=== PATIENT | male | born 1950 | race Caucasian/White ===

== ENCOUNTER 2016-11-29 08:48 | Observation (INO) ==
[2016-11-29] MEDS ORDERED: ENOXAPARIN 100 MG/ML SYRINGE SUBCUT STA (09:14)
[2016-11-29] MEDS ORDERED: ASPIRIN 325 MG TABLET PO STA (09:14)
--- NOTE | 2016-11-29 09:17 | EKG Report ---
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
[2016-11-29] MEDS ORDERED: ASPIRIN 325 MG TABLET ONE (09:19)
[2016-11-29] MEDS ORDERED: ENOXAPARIN 100 MG/ML SYRINGE SUBCUT ONE (09:19)
--- NOTE | 2016-11-29 09:30 | XRay Report ---
2 view chest. Indication: Chest pain. The heart is normal in size. There is calcific plaque present within the aortic knob. The pulmonary vasculature is normal. There is mild scarring at the left costophrenic angle. No consolidation, pneumothorax, or pleural effusion. Degenerative changes of the spinal column and shoulders. Surgical clips in the right upper quadrant. Impression: Scarring at the left base. No acute abnormality. PROCEDURE INTERPRETED AT [facility] DEPARTMENT OF RADIOLOGY Final Report Signed by: Dr. Jennifer Terrell
[2016-11-29 10:11] LABS: Basophils % 0.6 % (0.0-0.8); Eosinophils # 0.2 10*3/uL (0.0-0.87); Eosinophils % 3.1 % (0.00-10.9); Hematocrit 44.4 VOL% (42.0-52.0); Hemoglobin 14.9 GM/DL (14.0-18.0); Immature Granulocytes % 0.4 %; Immature Granulocytes Absolute 0.02 #; Lymphocytes # 1.4 10*3/uL (1.4-4.0); Lymphocytes % 27.7 % (21.2-54.2); Mean Corpuscular HGB Conc 33.6 GM/DL (32-36); Mean Corpuscular Hemoglobin 33 PG (27-34); Mean Corpuscular Volume 98.7 FL (87-102); Mean Platelet Volume 9.8 FL (9.6-12.0); Monocytes # 0.3 10*3/uL (0.11-0.8); Neutrophils % 61.2 % (38.7-73.9); Platelet Count 171 T/CUMM (130-400); Red Cell Distribution Width 13.2 % (9.3-17.3); White Blood Count 4.9 T/CUMM (4-12)
[2016-11-29 10:30] LABS: Albumin 3.4 G/DL (3.4-5.0); Bilirubin,Total 0.5 MG/DL (0.2-1.0); Calcium 8.4 MG/DL (8.5-10.1); Magnesium 2.1 MG/DL (1.8-2.4); Potassium 3.8 MMOL/L (3.5-5.1); Total Protein 6.1 G/DL (6.4-8.3)
--- NOTE | 2016-11-29 10:50 | Emergency Department Note ---
Cat Horn Brittany, am scribing for, and in the presence of, Nathan Thomas MD 09:49. William Horn Phillip K, MD, personally performed the services described in this documentation, ascribed by Lorenza Shelton in my presence, and it is both accurate and complete . Arrival - Arrival Chief Complaint: Chest Pain Stated Complaint: chest pain ED Nursing Triage Note: Pt c/o left sided chest pain since 0500 with a HERCULES. Denies SOB. Mode of Arrival: Ambulatory - History of Present Illness HPI Narrative: This is a 66 y/o white male,who presents to the ED with c/o CP which started at 0600 this morning. He reports he was at rest when the chest pain started. He denies any radiation to the neck, jaw or arm. He denies any N?V/ or dyspnea. He states he has had similar Sx in the past. He reports a dry cough as well. His states pt experienced some dizziness and a HERCULES yesterday. He states the HERCULES is still present. PT has no other complaints/pain in the ED at this time. Pt has a PMHx of CAD and HTN. Pt has had a cardiac cath with 4 stents. Pt is a former smoker. Onset (ago): hour(s) (Started at 0600 this morning) Consistency: constant Severity: moderate, similar to previous episodes Allergies/Adverse Reactions: Allergies Allergy/AdvReac Type Severity Reaction Status Date / Time No Known Allergies Allergy Unverified 03/12/16 12:45 Home Medications: Home Medications Medication Instructions Recorded Confirmed Type Allopurinol 300 mg PO QAM 03/12/16 11/29/16 History Aspirin [Ecotrin] 81 mg PO QAM 03/12/16 11/29/16 History Losartan [Cozaar] 50 mg PO QAM 03/12/16 11/29/16 History Magnesium Oxide 400 mg PO BID 03/12/16 11/29/16 History amLODIPine [Norvasc] 5 mg PO QAM 03/12/16 11/29/16 History Hydrocodone/Acetaminophen 1 each PO Q12H PRN 11/29/16 11/29/16 History [Hydrocodon-Acetaminophn 10-325] Review of System - Review of System 12 point system: reviewed and no additional remarkable complaints except as stated - Review of System Respiratory: Present: cough (Dry cough) Cardiovascular: Present: chest pain. Absent: dyspnea on exertion Gastrointestinal: Absent: nausea, vomiting Neurological: Present: headache, vertigo (Dizziness) Medical,Surgical,& Family Hx - Medical History Cardio: History of: CAD, Hypertension, Cardiovascular Problems (stents) - Surgical History Cardiac Surgeries: Sugical HX of: Cardiac Catheterization - Social History Smoking Status: Former smoker Exam Vital Signs: Vital Signs Temperature 97.4 F L 11/29/16 09:06 Pulse Rate 102 H 11/29/16 09:06 Respiratory Rate 16 11/29/16 09:06 Blood Pressure 161/92 11/29/16 09:06 O2 Sat by Pulse Oximetry 100 11/29/16 10:01 - General General appearance: alert, in no apparent distress - Head Head exam: Present: atraumatic, normocephalic, normal inspection - Eye Eye exam: Present: normal appearance, PERRL, EOMI. Absent: nystagmus, miosis, mydriasis - ENT ENT exam: Present: normal exam, normal oropharynx, mucous membranes moist, TM's normal bilaterally, normal external ear exam - Neck Neck exam: Present: normal inspection, full ROM, trachea midline. Absent: tenderness, meningismus, lymphadenopathy, thyromegaly - Chest Chest inspection: Present: normal inspection, symmetric chest wall rise. Absent : tenderness, rash, abscess - Respiratory Respiratory exam: Present: normal lung sounds bilaterally. Absent: prolonged expiratory phase, rales, respiratory distress, rhonchi, stridor, wheezes - Cardiovascular Cardiovascular exam: Present: regular rate, normal rhythm, normal heart sounds. Absent: murmur, rubs, gallop, clicks - Abdominal Exam Abdominal exam: Present: soft, normal bowel sounds. Absent: distention, tenderness, guarding, rebound, rigidity - Rectal Exam Rectal exam: Present: deferred - Extremities Exam Extremities exam: Present: normal inspection, full ROM, normal capillary refill. Absent: tenderness, pedal edema, joint swelling, calf tenderness - Back Exam Back exam: Present: normal inspection, full ROM. Absent: tenderness, muscle spasm, rashes - Neurological Exam Neurological exam: Present: alert, oriented X3, CN II-XII intact. Absent: motor sensory deficit - Psychiatric Psychiatric exam: Present: normal affect, normal mood. Absent: depressed, agitated, anxious, flat affect, manic - Skin Skin exam: Present: warm, dry, intact, normal color. Absent: rash, cyanosis, diaphoresis, erythema, pallor, mottled Course Course Narrative: Patient discussed with Dr. Olsen. We will admit for serial enzymes and further monitoring. Results - Labs CBC & BMP: 11/29/16 09:47 11/29/16 09:47 Lab Results: I have reviewed the patients labs Labs: Laboratory Tests 11/29/16 11/29/16 11/29/16 09:47 09:47 09:47 WBC 4.9 RBC 4.50 Hgb 14.9 Hct 44.4 MCV 98.7 MCH 33 MCHC 33.6 RDW 13.2 Plt Count 171 MPV 9.8 Neut % (Auto) 61.2 Lymph % (Auto) 27.7 [place] % (Auto) 7.0 Eos % (Auto) 3.1 Baso % (Auto) 0.6 Neut # (Auto) 3.0 Lymph # (Auto) 1.4 [place] # (Auto) 0.3 Eos # (Auto) 0.2 Baso # (Auto) 0.0 Immature Gran % 0.4 Nucleated RBC % 0.0 Immature Gran # 0.02 Nucleated RBCs # 0.00 Sodium 143 Potassium 3.8 Chloride 104 Carbon Dioxide 30 Anion Gap 12.8 BUN 29 H Creatinine 1.20 GFR Calculation 77 BUN/Creatinine Ratio 24.00 H Glucose 81 Calculated Osmolality 289.0 Calcium 8.4 L Magnesium 2.1 Total Bilirubin 0.50 AST 41 H ALT 37 Alkaline Phosphatase 93 Troponin I 0.021 Total Protein 6.1 L Albumin 3.4 Globulin 2.7 Albumin/Globulin Ratio 1.2 - EKG EKG results: interpreted by ERMBree, sinus rhythm (PVCs, right bundle branch block) - Diagnostic Findings Procedure: Chest x-ray: report reviewed by me (Scarring at the left base. No acute abnormality.) Disposition Clinical Impression: Chest pain, Possible unstable angina Case discussed with: patient Disposition: Still a Patient Condition: Guarded Additional Instructions: Admit to Dr. Olsen.
[2016-11-29] MEDS ORDERED: DOCUSATE SODIUM 100 MG CAPSULE PO PRN (12:42)
[2016-11-29] MEDS ORDERED: ZALEPLON 5 MG CAPSULE PO PRN (12:42)
[2016-11-29] MEDS ORDERED: ONDANSETRON 4 MG/2 ML VIAL IV PRN (12:42)
[2016-11-29] MEDS ORDERED: MAGNESIUM SULF RIDER 2 GM in PREMIX 1 EACH IV PRN ×2 (12:43→13:46)
[2016-11-29] MEDS ORDERED: POTASSIUM CHLORIDE 20 MEQ TABLET PO PRN (12:43)
[2016-11-29] MEDS ORDERED: MAGNESIUM SULF RIDER 4 GM in PREMIX 1 EACH IV PRN (12:43)
--- NOTE | 2016-11-29 12:43 | EKG Report ---
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
[2016-11-29] MEDS ORDERED: NITROGLYCERIN SL 0.4 MG TABLET SL PRN (12:47)
[2016-11-29] MEDS ORDERED: diphenhydrAMINE CAP 25 MG CAPSULE PO ONE (12:52)
--- NOTE | 2016-11-29 12:55 | Cardiology History & Physical ---
Aris Horn April, RN, am scribing for, and in the presence of, Frandy Olsen MD 12:55. 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 Mcintosh is a 66 year old male who has seen Dr. Phoenix in the past, it does not look like he is seen him in the office recently. He had a history of CAD, hypertension, dyslipidemia, and spinal stenosis. He had heart catheterization March 29, 2009 with angioplasty and stenting of mid PDA lesion. His most recent heart cath was February 04, 2012 with stenting of proximal right coronary artery with bare-metal stent and proximal first obtuse marginal branch with drug-eluting stent. Other surgical history includes tonsillectomy, bilateral knee replacements and gastric bypass. Family history is positive for mother with heart disease and siblings with heart disease, stroke, and diabetes. He reports he no longer smokes, stating he quit about 30 years ago. Mr. Mcintosh reports he was dizzy yesterday but no other specific complaints. This morning around 6:00 he began to have chest pain. He describes as it as a dull ache to the left side of his chest that did not radiate. He reports it came on at rest and does not seem to increase with exertion. He rated it a 7-8 on a scale of 1-10 he denies any associated shortness of breath or nausea with this pain. He did continue to have dizziness today. It has been relieved with [place]. EKG showed sinus rhythm with occasional PVCs, heart rate of 82. Chest x -ray showed no acute abnormality. Troponin has been negative. His blood pressure has been elevated while he has been here, currently is 155/99. 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 He is currently pain-free. However his chest pain is reproducible with palpation. He has a remote history of multiple stents placed for multivessel coronary disease. My history is somewhat different in that he says that this is typical for his pre-stent discomfort. I am going to proceed with invasive evaluation in the morning. I reviewed with him the risks benefits and alternatives of the procedure and we will plan catheterization from the right wrist in the morning. I have discussed in detail the particulars of this case and I have examined the patient and reviewed the patient's chart both current and old. I was directly involved in the patient's evaluation and management and I completely agree with Vicky Hurst RN regarding this patient's evaluation and treatment plan. Home Medications Medication Instructions Recorded Confirmed Type Allopurinol 300 mg PO QAM 03/12/16 11/29/16 History Aspirin [Ecotrin] 81 mg PO QAM 03/12/16 11/29/16 History Losartan [Cozaar] 50 mg PO QAM 03/12/16 11/29/16 History Magnesium Oxide 400 mg PO BID 03/12/16 11/29/16 History amLODIPine [Norvasc] 5 mg PO QAM 03/12/16 11/29/16 History Hydrocodone/Acetaminophen 1 each PO Q12H PRN 11/29/16 11/29/16 History [Hydrocodon-Acetaminophn 10-325] Allergies Allergy/AdvReac Type Severity Reaction Status Date / Time No Known Allergies Allergy Unverified 03/12/16 12:45 - Constitutional Constitutional: Present: as per HPI - EENT Eyes: Present: blurry vision (Right eye), loss of vision, requires corrective lense Ears: Present: tinnitus. Absent: decreased hearing, ear pain Nose, mouth and throat: Present: headache(s), neck pain. Absent: dysphagia, epistaxis, hoarseness, sore throat - Cardiovascular Cardiovascular: Present: chest pain at rest, lightheadedness. Absent: diaphoresis, dyspnea, dyspnea on exertion, edema, radiating jaw, neck or arm pain, orthopnea, palpitations - Respiratory Respiratory: Present: cough. Absent: dyspnea, hemoptysis, dyspnea on exertion, wheezing - Gastrointestinal Gastrointestinal: Absent: abdominal pain, constipation, diarrhea, hematemesis, hematochezia, melena, nausea, vomiting - Genitourinary Genitourinary: Absent: dysuria, hematuria - Musculoskeletal Musculoskeletal: Present: back pain, limited range of motion, muscle weakness - Neurological Neurological: Present: dizziness, headache(s). Absent: abnormal speech, confusion, frequent falls, syncope - Psychiatric Psychiatric: Absent: anxiety, depression - Endocrine Endocrine: Present: fatigue - Hematologic/Lymphatic Hematologic/Lymphatic: Present: easy bruising. Absent: easy bleeding Medical,Surgical,& Family Hx - Medical History Cardio: History of: CAD, Hypertension Musculoskeletal: History of: Back/Neck Problems - Surgical History Cardiac Surgeries: Sugical HX of: Cardiac Catheterization HEENT Surgeries: Surgical HX of: Tonsilectomy & Adenoidectomy Abdominal Surgeries: Surgical HX of: Gastric Bypass Surgery Orthopedic Surgeries: Surgical HX of;: Total Knee Replacement (Bilaterally) - Family History Family History: Reports;: Family Diabetes (Sibling), Family Heart Disease ( Mother, brother), Family Stroke (Brother) - Social History Smoking Status: Former smoker (Reports he quit 30 years ago) Have you smoked in the last 12 months: No Frequency of Alcohol Use: Occasionally Type of Drug Use: None Lives With:: Alone Functional capacity: independent ambulation Cardiology Physical Exam - Constitutional Vitals: Vital Signs Temp Pulse Resp BP Pulse Ox 97.4 F L 93 H 17 145/99 96 11/29/16 09:06 11/29/16 11:24 11/29/16 11:24 11/29/16 11:24 11/29/16 11:24 Intake and Output 11/28/16 11/29/16 11/29/16 22:59 06:59 14:59 Other: Weight 217 lb Patient Weight 11/30/16 06:59 Weight 217 lb General appearance: no acute distress - Respiratory Respiratory exam: Present: clear to auscultation bilaterally, chest wall tenderness. Absent: accessory muscle use - Cardiovascular Cardiovascular exam: Present: regular rate and rhythm. Absent: rubs - GI/Abdominal GI/Abdominal exam: Present: normal bowel sounds, soft. Absent: firm, tenderness - Extremities Exam Extremities exam: Absent: edema - Neurological Exam Neurological exam: Present: alert, oriented X3 - Psychiatric Psychiatric exam: Present: normal affect, normal mood - Skin Skin exam: Present: warm, dry Result/EKG - Labs CBC & BMP: 11/29/16 09:47 11/29/16 09:47 Lab Results: I have reviewed the past 24 hour labs Labs: Laboratory Results - last 24 hr 11/29/16 11/29/16 11/29/16 09:47 09:47 09:47 WBC 4.9 RBC 4.50 Hgb 14.9 Hct 44.4 MCV 98.7 MCH 33 MCHC 33.6 RDW 13.2 Plt Count 171 MPV 9.8 Neut % (Auto) 61.2 Lymph % (Auto) 27.7 [place] % (Auto) 7.0 Eos % (Auto) 3.1 Baso % (Auto) 0.6 Neut # (Auto) 3.0 Lymph # (Auto) 1.4 [place] # (Auto) 0.3 Eos # (Auto) 0.2 Baso # (Auto) 0.0 Immature Gran % 0.4 Nucleated RBC % 0.0 Immature Gran # 0.02 Nucleated RBCs # 0.00 Sodium 143 Potassium 3.8 Chloride 104 Carbon Dioxide 30 Anion Gap 12.8 BUN 29 H Creatinine 1.20 GFR Calculation 77 BUN/Creatinine Ratio 24.00 H Glucose 81 Calculated Osmolality 289.0 Calcium 8.4 L Magnesium 2.1 Total Bilirubin 0.50 AST 41 H ALT 37 Alkaline Phosphatase 93 Troponin I 0.021 Total Protein 6.1 L Albumin 3.4 Globulin 2.7 Albumin/Globulin Ratio 1.2 - Diagnostic Findings Procedure: Chest x-ray: report reviewed by me - EKG EKG results: interpreted by me EKG shows: sinus rhythm IRaúl Wesley, MD, personally performed the services described in this documentation, ascribed by Vicky Hurst RN in my presence, and it is both accurate and complete .
[2016-11-29] MEDS ORDERED: DIAZEPAM 5 MG TABLET PO ONE (13:00)
[2016-11-29] MEDS ORDERED: POTASSIUM CHLORIDE RIDER 10 MEQ in PREMIX 1 EACH IV PRN (13:46)
--- NOTE | 2016-11-29 13:52 | Event Note ---
66-year-old man with known coronary disease having prior percutaneous coronary intervention. Based on information the patient had heart catheterization March 2009 with stenting of the mid PDA followed by catheterization January 2012 stenting of the proximal RCA and proximal first obtuse marginal branch. The patient has not been compliant with follow-up with Dr. Phoenix who originally saw the patient then. Patient presented with chest pain of anginal quality was evaluated in the emergency room. Dr. Olsen saw the patient and felt the patient was having anginal and with his coronary disease history should have a cardiac catheterization. We will proceed with catheterization today. I discussed cardiac catheterization with the patient reviewing medications as well as how the procedure be carried out the risk. I discussed cardiac catheterization and percutaneous coronary intervention with the patient. I reviewed with him the indications for the procedure and the basis of how the procedure would be carried out. I also reviewed with him the risk of the procedure which include but not necessarily limited to access site bleeding, bruising, pain, swelling or vascular injury that may require emergency vascular surgery, blood transfusion, or thrombin injection. Also discussed the possibility of stroke, myocardial infarction, arrhythmia which may require electrocardioversion, and the possibility of dye reaction that would require medical therapy. Also discussed the possibility of coronary artery injury, ruptured, closure or perforation that may require emergency bypass surgery. We also discussed the possibility of from a major complication. He voices understanding and agrees to proceed.
[2016-11-29] MEDS ORDERED: SODIUM CHLORIDE 0.45% 1,000 ML IV SCH (13:55)
[2016-11-29] MEDS ORDERED: fentaNYL 100 MCG/2 ML VIAL ONE (14:18)
[2016-11-29] MEDS ORDERED: MIDAZOLAM 2 MG/2 ML VIAL ONE (14:18)
[2016-11-29] MEDS ORDERED: LIDOCAINE 1% 20 ML VIAL ONE (14:18)
[2016-11-29 14:24] LABS: Troponin I Only < 0.015 NG/ML (0.00-0.045)
--- NOTE | 2016-11-29 14:47 | History and Physical Update ---
Sedation H&P Update - History and Physical H&P was reviewed, the patient examined and there: are no changes in the patients condition since last H&P was completed. - Dictation Physical: refer to H&P completed by admitting physician - Physical Exam Mental Status: alert and oriented Heart: regular rate and rhythm Lung: clear to auscultation Abdomen: within normal limits Vitals: within normal limits History and Physical Changes: NONE - Sedation Plan for Sedation: moderate Patient Consent: Procedure disscussed with patient and patinet has consented., Risks and benefits were discussed with patient,including infection,, bleeding, injury to surrounding structures, seizure, temporary nerve, Patient understands and accepts potential risks/benefits and agrees to, proceed. ASA Class: III Airway Assessment: Class IV: Only hard palate visible
--- NOTE | 2016-11-29 15:15 | Operative Note ---
Date of procedure: 11/29/16 Procedure Preformed: Left heart catheterization with LV gram and coronary artery angiography. Surgeon / Physician: Eduar Weston Chip Crusher Operator: Susanne Vincent Post-op diagnosis: other (Patent coronary arteries) Findings: Coronary stents are patent and coronary arteries are patent. Specimens: none sent Estimated blood loss: minimal Condition: stable Anesthesia: local, conscious sedation Disposition: floor
--- NOTE | 2016-11-29 15:22 | Cardiac Catheterization ---
Date of Procedure:: 11/29/16 Pre-op Diagnosis: Patient known coronary disease having chest pain of anginal quality. Post-op diagnosis: other (Patent coronary arteries) Procedure: LEFT HEART CATHERIZATION History: 66-year-old male with chest pain of anginal quality with known coronary disease and stents placed previously. Pre-Op diagnosis: Known coronary disease with anginal chest pain. Postoperative diagnosis: Coronary is patent without obstructive stenosis. Procedures: 1. Left heart catheterization. 2. Left ventricular angiogram. 3. Selective left and right coronary angiograms. 4. Right common femoral artery angiogram with Angio-Seal hemostasis. Equipment: 6 Malian arterial sheath, 6 Malian diagnostic pigtail catheter, JL4 and JR4 diagnostic catheters. A 6 [place]ian Angio-Seal hemostatic device. Medications: Preoperative Benadryl and Valium given by mouth. Lidocaine 1% local anesthesia 10 mls administered by myself. Intraprocedure patient received Versed 2 mgs IVP, fentanyl 100 mcg IVP. Complications: None immediate. Contrast: Omnipaque 82milliliters. Description of procedure: After informed consent the patient was given preoperative medications and brought to the catheterization laboratory where their right groin was prepped and draped in usual fashion. IV sedation was then obtained after which local anesthesia was administered at the right groin over the right common femoral artery. Using modified Seldinger technique the right common femoral artery was cannulated with 6 Malian arterial sheath placed. The pigtail catheter was then advanced through the sheath in a retrograde approach through the aorta to the aortic valve. The catheter was advanced through the aortic valve where left ventricular pressures were measured. The catheter was then pulled back into the aortic root and pressures measured. The catheter was then advanced across the aortic valve into the left ventricle where left ventricular angiogram was obtained in the right anterior oblique view. The pigtail catheter was then removed. The JL4 diagnostic coronary catheter was then advanced through the sheath in a retrograde approach and used to cannulate the left coronary artery of which angiograms were obtained in multiple projections. This catheter was then removed. The JR 4 diagnostic coronary catheter was then advanced retrograde through the aorta and used to cannulate the right coronary artery of which angiograms were obtained in multiple projections. Angiograms were then reviewed. The right coronary catheter was pulled back into the sheath where a right common femoral artery angiogram was obtained with Angio-Seal hemostasis then obtained of this vessel. There were no immediate complications. Hemodynamic data: LV 112/4 , EDP 7 ; AO root 120/83 , mean 100 . Left ventricular angiogram: Left ventricle is normal size with systolic ejection fraction of 50-55%. There is no significant mitral valve regurgitation demonstrated. There are valve. Tricuspid structure. The thoracic aorta from the right oblique view appears to be unremarkable other than aortic calcifications. There is calcification noted the coronary arteries. Left main coronary artery angiogram: Left main coronary with calcification. Medium sized vessel that bifurcates into the LAD and circumflex arteries. Left anterior descending artery angiogram: The LAD is a medium to large caliber vessel proximally with some calcification. The LAD extends to the anterior apex. The first diagonal branch is small caliber. The second diagonal branches 5 medium caliber. Circumflex artery angiogram: Circumflex artery is a medium to large caliber vessel calcification. First obtuse marginal branch is a medium caliber long vessel, larger myocardium. He has a proximal stent is widely patent. The second obtuse marginal branch is a medium caliber vessel long and tortuous. It is widely patent. The distal cervix artery terminates in the form of a third obtuse marginal branch/posterior ventricular branch. The circumflex artery proper has some calcification but is widely patent. Right coronary artery angiogram: RCA is a large caliber vessel giving rise to medium caliber long PDA extending to the posterior apex. Posterior branches are small-caliber vessels with small AV node artery distally. The proximal RCA stent is widely patent. The PDA stent is widely patent. There is luminal irregularities and some calcification present with RCA is with JOVON-3 flow. Right common femoral artery angiogram: Right common femoral artery is widely patent with the sheath inserted right at the bifurcation possibly some degree and a large profundus. Assessment and hemostasis. Impression: 1. Left ventricle is normal size with ejection fraction 50-55%. No segmental wall motion normality is noted. 2. LVEDP is normal at 7 mmHg. 3. There is no significant mitral valve regurgitation. 4. Aortic valve the tricuspid structure without gradient. 5. RCA is widely patent with patent proximal stent. PDA stent is widely patent. There is no stenotic or occlusive disease present. There is some calcification present. 6. Left main coronary with calcification but widely patent. 7. Circumflex artery system is some calcification but widely patent. First obtuse marginal stent is widely patent. 8. LAD with some calcification but without stenosis. 9. Right common femoral artery is patent successfully initial hemostasis. Discussion: We will monitor the patient post catheterization. He needs aggressive risk factor modification. He has some lifestyle changes that need to take place. This will be discussed the patient cardiac rehab is been consulted. Implants: None Anesthesia: local, moderate conscious sedation Surgeon / Physician: Eduar Weston Epidemiology Intern: other (Lanie Vincent RN) Estimated blood loss: minimal Specimens: none sent Condition: stable Disposition: floor - Medications / Follow-up
--- NOTE | 2016-11-29 16:05 | Event Note ---
Patient and family complained that he has been having headaches as well as some dizziness and near syncopal episodes. He had a short nonsustained run of SVT post catheterization today. He did not complain of anything though at that time. We will watch him overnight on the monitor spaces he said he has been having spells pretty frequent for the last 48 hours. Hopefully will catch a spell. We will go ahead and order carotid Dopplers and probably a CT of the head for in the morning. He may need outpatient evaluation with neurologic evaluation is well as event monitoring. In regard to his catheterization is doing well. Discussed findings catheterization that his arteries are patent. I do not think his pain is cardiac. His groin is stable.
[2016-11-29] MEDS: LORazepam 0.5 MG TABLET PO SCH ×2 (16:07→21:13)
[2016-11-29] MEDS: PANTOPRAZOLE 40 MG TABLET PO SCH (16:07)
[2016-11-29] MEDS: FOLIC ACID 1 MG TABLET PO SCH (16:07)
--- NOTE | 2016-11-29 18:46 | Ultrasound Report ---
Carotid artery ultrasound Indication: Vertigo, syncope Comparison: None available Color Doppler flow and spectral analysis was performed. Findings: Mild to moderate amount of atherosclerotic plaque is present in both proximal internal carotid arteries. The peak systolic velocity in the right is 47 cm/s . Ratio of flow is 1.5. The peak systolic velocity in the left is 52 cm/s . Ratio of flow is 1.1 Bilateral antegrade vertebral flow is seen. Impression: No evidence of hemodynamically significant stenosis is seen, 0-49% estimated stenosis. Consensus conference on the carotid ultrasound criteria used. Ultrasound images were captured and stored. PROCEDURE INTERPRETED AT [facility] [place] DEPARTMENT OF RADIOLOGY Final Report Signed by: Dr. Miller Iglesias
[2016-11-29] MEDS: ACETAMINOPHEN 325 MG TABLET PO PRN (21:12)
[2016-11-29] MEDS: MAGNESIUM OXIDE 400 MG TABLET PO SCH (21:13)
[2016-11-30 02:45] LABS: Basophils % 0.5 % (0.0-0.8); Eosinophils # 0.2 10*3/uL (0.0-0.87); Eosinophils % 5.3 % (0.00-10.9); Hematocrit 42.6 VOL% (42.0-52.0); Hemoglobin 14.1 GM/DL (14.0-18.0); Immature Granulocytes % 0.7 %; Immature Granulocytes Absolute 0.03 #; Lymphocytes # 1.5 10*3/uL (1.4-4.0); Lymphocytes % 34.5 % (21.2-54.2); Mean Corpuscular HGB Conc 33.1 GM/DL (32-36); Mean Corpuscular Hemoglobin 33 PG (27-34); Mean Corpuscular Volume 99.1 FL (87-102); Mean Platelet Volume 10.3 FL (9.6-12.0); Monocytes # 0.3 10*3/uL (0.11-0.8); Monocytes % 6.4 % (1.7-12.7); Neutrophils # 2.3 10*3/uL (1.4-7.4); Neutrophils % 52.6 % (38.7-73.9); Platelet Count 157 T/CUMM (130-400); Red Cell Distribution Width 12.9 % (9.3-17.3); White Blood Count 4.4 T/CUMM (4-12)
[2016-11-30 03:13] LABS: Troponin I Only 0.016 NG/ML (0.00-0.045)
[2016-11-30 03:24] LABS: Calcium 7.9 MG/DL (8.5-10.1); Free T4 (Free Thyroxine) 1.05 NG/DL (0.76-1.46); Magnesium 1.9 MG/DL (1.8-2.4); Osmolality,Calculated 284.1 MOS/KG (273-304); Potassium 3.6 MMOL/L (3.5-5.1); Risk Ratio 1.98; Thyroid Stimulating Hormone 0.69 uIU/ml (0.358-3.74); VLDL CHOLESTEROL 19.2 MG/DL
[2016-11-30 04:04] LABS: Eosinophils 2 % (0-10); Lymphocytes 38 % (20-55); Segmented Neutrophils 58 % (50-85); Total Cells Counted 100
[2016-11-30 04:05] LABS: Anisocytosis Slight; Macrocytosis Slight; Platelet Estimate Normal
[2016-11-30 04:06] LABS: Atypical Lymphocytes Few
[2016-11-30] MEDS ORDERED: SODIUM CHLORIDE 0.45% 1,000 ML IV SCH (06:00)
[2016-11-30] MEDS: ACETAMINOPHEN 325 MG TABLET PO PRN (06:01)
[2016-11-30 08:12] LABS: Apearance,Urine CLEAR (Clear); Bilirubin,Urine Negative (Negative); Blood, Urine Moderate mg/dL (Negative); Glucose,Urine (UA) Negative (Negative); Ketones,Urine Negative (Negative); Nitrite,Urine Negative (Negative); Protein,Urine 30 MG/DL; RBC,Urine 2 /HPF (0-4); Urine Color Yellow (Yellow); Urine Specific Gravity 1.032 (1.001-1.035); Urine Urobilinogen < 2.0 EU/DL (0.2-1.0); WBC,Urine <1 /HPF (0-6)
--- NOTE | 2016-11-30 08:42 | CT Report ---
CT head/brain wo/w con Indication: Headaches. Dizziness and syncope. CT BRAIN WITH AND WITHOUT CONTRAST DLP: 1996 mGy*cm. One or more of the following dose reduction techniques was used: Automated exposure control, adjustment of the mA and/or kV according the patient size, or use of iterative reconstruction techniques. Comparison: None. Date of admission: 11/29/2016. Technique: Axial CT images of the brain were obtained before and after the IV administration of Omnipaque 350, 80 cc. Findings: No acute hemorrhage, mass or mass effect. Generalized atrophy and patchy periventricular white matter hypodensity is present throughout both convexities. Cortical andres-white junction and structures of the basal ganglia are well-defined. No enhancing lesions seen. No bone lesions are shown. Internal auditory canals are symmetric. Nodular mucosal thickening of the ethmoid, sphenoid and maxillary sinus is noted. There is opacification of the right frontal sinus. Mastoid air cells are clear. Impression: No acute intracranial pathology. Generalized atrophy and changes consistent with microvascular disease. Pansinusitis. PROCEDURE INTERPRETED AT [facility] DEPARTMENT OF RADIOLOGY Final Report Signed by: Eduar Sandy M.D.
[2016-11-30] MEDS: PANTOPRAZOLE 40 MG TABLET PO SCH (08:46)
[2016-11-30] MEDS: MAGNESIUM OXIDE 400 MG TABLET PO SCH (08:46)
[2016-11-30] MEDS: LORazepam 0.5 MG TABLET PO SCH (08:46)
[2016-11-30] MEDS: FOLIC ACID 1 MG TABLET PO SCH (08:46)
[2016-11-30] MEDS ORDERED: amLODIPine 5 MG TABLET PO SCH (09:00)
[2016-11-30] MEDS ORDERED: LOSARTAN 50 MG TABLET PO SCH (09:00)
[2016-11-30] MEDS ORDERED: ASPIRIN EC 81 MG TABLET PO SCH (09:00)
[2016-11-30] MEDS ORDERED: ALLOPURINOL 300 MG TABLET PO SCH (09:00)
--- NOTE | 2016-11-30 11:44 | Discharge Summary ---
Hospital Course - Hospital Course Hospital Course: Patient is admitted from and through the emergency room because of chest pain. He had a prior history coronary disease having stents placed previously. He has been noncompliant follow-up with Dr. 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 The patient underwent heart catheterization finding that his coronaries were patent as were his stents. He had no obstructive or occlusive disease to cause symptomatology. His cardiac enzymes are unremarkable he had no acute changes on his ECG. Patient's lipids are stable. The patient was noted to have some PVCs and SVT. That is nonsustained. He also complains of dizziness that sounds more like vertigo or positional. He states she has been having dizziness when he would get up or lay down or turning quickly. He has had no dizziness that we can correlate with his SVT. He will certainly need follow-up for this. His carotid Dopplers were unremarkable without any occlusive carotid disease. His CT of the head did not reveal any specific pathology based on report from the radiologist. At the time of discharge he is stable. Results of his cardiac catheterization Impression: 1. Left ventricle is normal size with ejection fraction 50-55%. No segmental wall motion normality is noted. 2. LVEDP is normal at 7 mmHg. 3. There is no significant mitral valve regurgitation. 4. Aortic valve the tricuspid structure without gradient. 5. RCA is widely patent with patent proximal stent. PDA stent is widely patent. There is no stenotic or occlusive disease present. There is some calcification present. 6. Left main coronary with calcification but widely patent. 7. Circumflex artery system is some calcification but widely patent. First obtuse marginal stent is widely patent. 8. LAD with some calcification but without stenosis. 9. Right common femoral artery is patent successfully initial hemostasis. Diagnosis - Discharge Diagnosis (1) Dizziness Status: Chronic (2) SVT (supraventricular tachycardia) Status: Acute (3) PVCs (premature ventricular contractions) Status: Acute (4) Chest pain Status: Resolved (5) CAD (coronary artery disease) Status: Chronic (6) Hypertension Status: Chronic Discharge Plan - Discharge Data Disposition: Disch To Home/Self Care Condition at Discharge: Stable Discharge Diet: heart healthy Activity: other (Low-level activity for the next week to allow his groin to his is stable and then return to routine activity.) Hygiene: no restrictions Weight Bearing at Discharge: full weight bearing Driving: not for (Another 24 hours and then progress if his right groin stable.) Contact your physician if you experience:: Redness or swelling, Shortness of breath, Bleeding, pain uncontrolled by pain medications - Discharge Medications New Metoprolol Succinate Xl [Toprol Xl] 50 mg PO DAILY #30 tablet Meclizine [Antivert] 12.5 mg PO TID #30 tablet Continue amLODIPine [Norvasc] 5 mg PO QAM Magnesium Oxide 400 mg PO BID Losartan [Cozaar] 50 mg PO QAM Allopurinol 300 mg PO QAM Aspirin [Ecotrin] 81 mg PO QAM Hydrocodone/Acetaminophen [Hydrocodon-Acetaminophn 10-325] 1 each PO Q12H PRN PRN Reason: Pain - Follow Up or Referral Follow Up: Dev Phoenix MD [Physician] - 2 Weeks (Follow-up in 2 weeks post cardiac catheterization in SVT on new medication) Vy Lara MD [Physician] - 1 Week (Follow-up in 1 week for his dizziness and start of Antivert.) - Forms/Instructions Exam - Constitutional Vitals: Period Temp Pulse Resp BP Sys/Olmedo Pulse Ox Last 24 Hr 96.8 F-98.2 F 69-109 16-18 107-155/75-106 93-97 Exam: General appearance: Obese, no acute distress HEENT exam: normal inspection, atraumatic Neck exam: normal inspection no JVD. No carotid bruit. Trachea is in midline Respiratory/lungs exam: clear to auscultation bilaterally good air movement. Cardiovascular exam: regular rate and rhythm, no murmur or gallop or rub. No precordial lift. Chest wall exam: nontender GI/Abdominal exam: normal bowel sounds, soft, nontender, no abdominal bruits or pulsatile masses. Extremeties/musculoskeletal: normal inspection without edema or cyanosis. Patient's right groin catheterization site is stable. Neurological exam: alert, oriented X3, no focal deficits Psychiatric exam: normal affect, normal mood. Cognitive function is grossly normal. Skin exam: normal color, warm Discharge Results Procedures and tests throughout hospitalization: Pending Orders 11/29/16 14:16 CL heart Routine 12/01/16 04:00 Basic Metabolic Panel IN AM Comp Blood Count Auto Diff IN AM Magnesium IN AM 12/02/16 04:00 Basic Metabolic Panel IN AM Comp Blood Count Auto Diff IN AM Magnesium IN AM Labs on day of discharge: Labs from last 24 hours 11/30/16 11/30/16 11/30/16 06:45 01:19 01:19 WBC 4.4 RBC 4.30 Hgb 14.1 Hct 42.6 MCV 99.1 MCH 33 MCHC 33.1 RDW 12.9 Plt Count 157 MPV 10.3 Neut % (Auto) 52.6 Lymph % (Auto) 34.5 [place] % (Auto) 6.4 Eos % (Auto) 5.3 Baso % (Auto) 0.5 Neut # (Auto) 2.3 Lymph # (Auto) 1.5 [place] # (Auto) 0.3 Eos # (Auto) 0.2 Baso # (Auto) 0.0 Total Counted 100 Immature Gran % 0.7 Nucleated RBC % 0.0 Immature Gran # 0.03 Segmented Neutrophils 58 Lymphocytes 38 Monocytes 1 L Eosinophils 2 Basophils 1.0 H Nucleated RBCs # 0.00 Atypical Lymphocytes Few Platelet Estimate Normal Anisocytosis Slight Macrocytosis Slight Sodium 142 Potassium 3.6 Chloride 104 Carbon Dioxide 29 Anion Gap 12.6 BUN 21 H Creatinine 0.90 GFR Calculation 110 BUN/Creatinine Ratio 23.00 H Glucose 76 Calculated Osmolality 284.1 Calcium 7.9 L Magnesium 1.9 Total Creatine Kinase CK-MB (CK-2) Troponin I Triglycerides 96 Cholesterol 158 LDL Cholesterol 55.0 VLDL Cholesterol 19.2 HDL Cholesterol 80 H Heart Disease Risk Ratio 1.98 Free T4 1.05 TSH 3rd Generation 0.690 Urine Color Yellow Urine Appearance Clear Urine pH 6.0 Ur Specific [place] 1.032 Urine Protein 30 Urine Glucose (UA) Negative Urine Ketones Negative Urine Blood Moderate Urine Nitrate Negative Urine Bilirubin Negative Urine Urobilinogen < 2.0 H Urine Leukocytes Negative Urine RBC 2 Urine WBC <1 Ur Culture Indicated? Not indicated 11/30/16 11/29/16 11/29/16 01:19 19:20 12:52 WBC RBC Hgb Hct MCV MCH MCHC RDW Plt Count MPV Neut % (Auto) Lymph % (Auto) [place] % (Auto) Eos % (Auto) Baso % (Auto) Neut # (Auto) Lymph # (Auto) [place] # (Auto) Eos # (Auto) Baso # (Auto) Total Counted Immature Gran % Nucleated RBC % Immature Gran # Segmented Neutrophils Lymphocytes Monocytes Eosinophils Basophils Nucleated RBCs # Atypical Lymphocytes Platelet Estimate Anisocytosis Macrocytosis Sodium Potassium Chloride Carbon Dioxide Anion Gap BUN Creatinine GFR Calculation BUN/Creatinine Ratio Glucose Calculated Osmolality Calcium Magnesium Total Creatine Kinase 62 76 79 CK-MB (CK-2) 1.1 1.2 1.3 Troponin I 0.016 0.020 < 0.015 Triglycerides Cholesterol LDL Cholesterol VLDL Cholesterol HDL Cholesterol Heart Disease Risk Ratio Free T4 TSH 3rd Generation Urine Color Urine Appearance Urine pH Ur Specific [place] Urine Protein Urine Glucose (UA) Urine Ketones Urine Blood Urine Nitrate Urine Bilirubin Urine Urobilinogen Urine Leukocytes Urine RBC Urine WBC Ur Culture Indicated? - Impressions Cardiac catheterization without obstructive coronary disease. Please see full report for details. Patient CT of the head without acute pathology to account for his dizziness. Carotid Dopplers patent. DS: Provider Date of admission: 11/29/16 10:53 Primary care physician: . No PCP Attending physician on admission: Frandy Olsen MD Consults: 11/29/16 15:17 Consult to Cardiac Rehabilitation [CONS] Routine Reason for Cardiac Rehabilitation: Risk Factor Modification Discharging clinician: Se Schulte Expected date of discharge: 11/30/16
[2016-11-30 11:48] VITALS: BP 146/103
[2016-11-30] MEDS ORDERED: METOPROLOL SUCCINATE XL 50 MG TABLET PO SCH (12:00)
[2016-11-30] MEDS ORDERED: MECLIZINE 12.5 MG TABLET PO SCH (15:00)
== END 2016-11-30 13:05 | disposition home or self-care (01) ==
LOC: N.EDINP 08:48 → N.ED 08:48 → N.TELEN 11:42
PROVIDERS: ADMIT Internal Medicine Interventional Cardiology; ATTEND Internal Medicine Interventional Cardiology
PROC: CLCCHCL (ICD-10-PCS; 2016-11-29 15:15)

== ENCOUNTER 2019-12-21 10:58 | Observation (INO) ==
[2019-12-21] MEDS ORDERED: SODIUM CHLORIDE 0.9% 1,000 ML IV STA ×2 (11:25→13:28)
[2019-12-21 12:02] LABS: Basophils # 0.1 10*3/uL (0.0-0.2); Basophils % 1.1 % (0.0-0.8); Eosinophils # 0.3 10*3/uL (0.0-0.87); Eosinophils % 4.5 % (0.00-10.9); Hematocrit 29.9 VOL% (42.0-52.0); Hemoglobin 9.2 GM/DL (14.0-18.0); Immature Granulocytes % 0.5 %; Immature Granulocytes Absolute 0.03 #; Lymphocytes # 1.1 10*3/uL (1.4-4.0); Lymphocytes % 17.2 % (21.2-54.2); Mean Corpuscular HGB Conc 30.8 GM/DL (32-36); Mean Corpuscular Volume 100.7 FL (87-102); Mean Platelet Volume 11.9 FL (9.6-12.0); Monocytes % 6.3 % (1.7-12.7); Neutrophils % 70.4 % (38.7-73.9); Platelet Count 247 T/CUMM (130-400); Red Blood Count 2.97 MC/CUMM (3.8-5.5); Red Cell Distribution Width 16.9 % (9.3-17.3); White Blood Count 6.2 T/CUMM (4-12)
[2019-12-21 12:12] LABS: PT Patient Result 10.8 SECS (9.8-11.9)
[2019-12-21 12:51] LABS: Bilirubin,Total 0.4 MG/DL (0.2-1.0); Calcium 8.2 MG/DL (8.5-10.1); Osmolality,Calculated 289.5 MOS/KG (273-304); Total Protein 5.9 G/DL (6.4-8.3)
[2019-12-21 13:43] LABS: % Iron Saturation 32.9 % (18-50)
[2019-12-21] MEDS ORDERED: PROMETHAZINE 25 MG TABLET PO PRN (13:59)
[2019-12-21] MEDS ORDERED: ZALEPLON 5 MG CAPSULE PO PRN (13:59)
[2019-12-21] MEDS ORDERED: ONDANSETRON 4 MG/2 ML VIAL IV PRN (13:59)
[2019-12-21] MEDS ORDERED: GLUCAGON 1 MG VIAL IM PRN (13:59)
[2019-12-21] MEDS ORDERED: ACETAMINOPHEN 325 MG TABLET PO PRN (13:59)
[2019-12-21] MEDS ORDERED: DEXTROSE 50% 25 GM/50 ML VIAL IV PRN (13:59)
[2019-12-21] MEDS ORDERED: BISACODYL 5 MG TABLET PO PRN (13:59)
[2019-12-21] MEDS: DEXTROSE 5% NACL 0.45% 1,000 ML IV SCH (15:50)
[2019-12-21 16:21] LABS: Barbiturates Screen,Urine Negative (Negative); Benzodiazepines Screen,Urine Negative (Negative); Cannabinoid Screen,Urine Negative (Negative); Opiate Screen,Urine Negative (Negative); Phencyclidine Screen,Urine Negative (Negative)
[2019-12-21 16:22] LABS: Apearance,Urine CLEAR (Clear); Bilirubin,Urine Negative (Negative); Blood, Urine Negative (Negative); Glucose,Urine (UA) Negative (Negative); Hyaline Casts,Urine 1 /LPF (0-3); Ketones,Urine Negative (Negative); Mucus,Urine Occasional /LPF (Occasional); Nitrite,Urine Negative (Negative); Protein,Urine Negative; RBC,Urine 1 /HPF (0-4); Urine Color Yellow (Yellow); Urine Specific Gravity 1.006 (1.001-1.035); Urine Urobilinogen < 2.0 EU/DL (0.2-1.0); WBC,Urine 1 /HPF (0-6)
[2019-12-21 16:27] LABS: Hematocrit 30.7 VOL% (42.0-52.0); Hemoglobin 9.6 GM/DL (14.0-18.0)
[2019-12-21 16:57] LABS: Calcium 8.2 MG/DL (8.5-10.1); Osmolality,Calculated 293.3 MOS/KG (273-304)
[2019-12-21 18:48] LABS: Folate 20.1 NG/ML (5.4-24.0)
[2019-12-21] MEDS: ENOXAPARIN 40 MG/0.4 ML SYRINGE SUBCUT SCH (20:20)
[2019-12-22] MEDS: DEXTROSE 5% NACL 0.45% 1,000 ML IV SCH (01:30)
[2019-12-22 04:03] LABS: Basophils % 0.9 % (0.0-0.8); Eosinophils # 0.3 10*3/uL (0.0-0.87); Eosinophils % 7.3 % (0.00-10.9); Hematocrit 29.8 VOL% (42.0-52.0); Hemoglobin 9.4 GM/DL (14.0-18.0); Immature Granulocytes % 0.4 %; Immature Granulocytes Absolute 0.02 #; Lymphocytes # 1.3 10*3/uL (1.4-4.0); Lymphocytes % 28.3 % (21.2-54.2); Mean Corpuscular HGB Conc 31.5 GM/DL (32-36); Mean Corpuscular Volume 98.7 FL (87-102); Mean Platelet Volume 11.7 FL (9.6-12.0); Monocytes % 7.7 % (1.7-12.7); Neutrophils % 55.4 % (38.7-73.9); Platelet Count 238 T/CUMM (130-400); Red Blood Count 3.02 MC/CUMM (3.8-5.5); White Blood Count 4.5 T/CUMM (4-12)
[2019-12-22 04:37] LABS: Calcium 8.2 MG/DL (8.5-10.1); Osmolality,Calculated 294.1 MOS/KG (273-304); Risk Ratio 4.89; Thyroid Stimulating Hormone 0.825 uIU/ml (0.358-3.74); VLDL CHOLESTEROL 22.6 MG/DL
[2019-12-22] MEDS: PANTOPRAZOLE 40 MG TABLET PO SCH (09:03)
[2019-12-22] MEDS: ENOXAPARIN 40 MG/0.4 ML SYRINGE SUBCUT SCH (20:06)
[2019-12-23] MEDS: PANTOPRAZOLE 40 MG TABLET PO SCH (09:25)
[2019-12-23 10:42] LABS: Calcium 8.6 MG/DL (8.5-10.1); Osmolality,Calculated 291.8 MOS/KG (273-304)
[2019-12-23] MEDS ORDERED: POTASSIUM CHLORIDE 20 MEQ TABLET PO ONE (11:24)
[2019-12-23 11:57] VITALS: BP 134/85
== END 2019-12-23 14:15 | disposition home health service (06) ==
LOC: N.EDINP 10:58 → N.ED 10:58 → N.EDINP 16:24 → N.TELES 17:10
PROVIDERS: ADMIT Internal Medicine; ATTEND Internal Medicine

== ENCOUNTER 2020-03-07 05:35 | Inpatient (IN) ==
[2020-03-01 12:15] LABS: Bilirubin,Urine Negative (Negative); Blood, Urine Moderate mg/dL (Negative); Glucose,Urine (UA) Negative (Negative); Ketones,Urine Negative (Negative); Nitrite,Urine Negative (Negative); Protein,Urine 100 MG/DL; RBC,Urine 1 /HPF (0-4); Urine Appearance CLEAR (Clear); Urine Color Straw (Yellow); Urine Specific Gravity 1.006 (1.001-1.035); Urine Urobilinogen < 2.0 EU/DL (0.2-1.0); WBC,Urine <1 /HPF (0-6)
[2020-03-01 12:19] LABS: Basophils % 0.3 % (0.0-0.8); Eosinophils # 0.1 10*3/uL (0.0-0.87); Hemoglobin 12.3 GM/DL (14.0-18.0); Immature Granulocytes % 0.3 %; Immature Granulocytes Absolute 0.02 #; Lymphocytes # 2.1 10*3/uL (1.4-4.0); Lymphocytes % 31.9 % (21.2-54.2); Mean Corpuscular HGB Conc 32.4 GM/DL (32-36); Mean Corpuscular Volume 94.3 FL (87-102); Mean Platelet Volume 10.4 FL (9.6-12.0); Monocytes % 6.3 % (1.7-12.7); Neutrophils % 60.2 % (38.7-73.9); Platelet Count 239 T/CUMM (130-400); Red Blood Count 4.03 MC/CUMM (3.8-5.5); White Blood Count 6.7 T/CUMM (4-12)
[2020-03-01 12:30] LABS: PT Patient Result 10.3 SECS (9.8-11.9); Partial Thromboplastin Time 30.2 SECS (23.9-33.8)
[2020-03-01 12:36] LABS: Albumin 3.9 G/DL (3.4-5.0); Bilirubin,Total 0.5 MG/DL (0.2-1.0); Calcium 9.4 MG/DL (8.5-10.1); Osmolality,Calculated 271.1 MOS/KG (273-304); Total Protein 7.4 G/DL (6.4-8.3)
[2020-03-07] MEDS ORDERED: ceFAZolin 1,000 MG VIAL ONE (05:53)
[2020-03-07] MEDS ORDERED: LACTATED RINGERS 1,000 ML IV SCH (06:00)
[2020-03-07] MEDS ORDERED: VANCOMYCIN INJ 1,000 MG in SODIUM CHLORIDE 0.9% 250 ML IV ONE (06:00)
[2020-03-07] MEDS ORDERED: ceFAZolin 1,000 MG in SYRINGE 1 EACH IV ONE (07:00)
[2020-03-07] MEDS ORDERED: DIAZEPAM 5 MG TABLET PO ONE (07:24)
[2020-03-07] MEDS ORDERED: FAMOTIDINE 20 MG TABLET PO ONE (07:24)
[2020-03-07] MEDS ORDERED: GABAPENTIN 400 MG CAPSULE PO ONE (07:24)
[2020-03-07] MEDS ORDERED: ACETAMINOPHEN 500 MG TABLET PO ONE (07:24)
[2020-03-07] MEDS ORDERED: MAGNESIUM HYDROXIDE SUSP 30 ML UDCUP PO PRN (10:01)
[2020-03-07] MEDS ORDERED: oxyCODONE/ACETAMINOPHEN 5-325 MG TABLET PO PRN (10:01)
[2020-03-07] MEDS ORDERED: diphenhydrAMINE CAP 25 MG CAPSULE PO PRN (10:01)
[2020-03-07] MEDS ORDERED: HYDROmorphone 2 MG/1 ML VIAL IV PRN ×2 (10:01)
[2020-03-07] MEDS ORDERED: ZALEPLON 5 MG CAPSULE PO PRN (10:01)
[2020-03-07] MEDS ORDERED: ONDANSETRON 4 MG/2 ML VIAL IV PRN ×2 (10:01→12:11)
[2020-03-07] MEDS ORDERED: oxyCODONE IR 5 MG TABLET PO PRN ×2 (10:01)
[2020-03-07] MEDS ORDERED: BUPIVACAINE MPF 0.25% 30 ML VIAL ONE (11:05)
[2020-03-07] MEDS ORDERED: BACITRACIN OINT 0.9 GM PACK TOP ONE (11:38)
[2020-03-07] MEDS: HYDROmorphone 2 MG/1 ML VIAL IV PRN ×4 (12:25→12:52)
[2020-03-07] MEDS ORDERED: LIDOCAINE 2% 5 ML VIAL ONE (12:28)
[2020-03-07] MEDS ORDERED: propofoL 200 MG/20 ML VIAL IV ONE (12:28)
[2020-03-07] MEDS ORDERED: SEVOFLURANE 1 UNIT/15 MINUTE INH ONE (12:28)
[2020-03-07] MEDS ORDERED: LACTATED RINGERS 1,000 ML IV ONE (12:29)
[2020-03-07] MEDS ORDERED: GLYCOPYRROLATE 0.4 MG/2 ML VIAL ONE (12:29)
[2020-03-07] MEDS ORDERED: ROCURONIUM 100 MG/10 ML VIAL IV ONE (12:29)
[2020-03-07] MEDS ORDERED: ePHEDrine 50 MG/ML VIAL ONE (12:29)
[2020-03-07] MEDS ORDERED: LABETALOL 100 MG/20 ML VIAL IV ONE (12:29)
[2020-03-07] MEDS ORDERED: NEOSTIGMINE 10 MG/10 ML VIAL ONE (12:29)
[2020-03-07] MEDS ORDERED: SODIUM CHLORIDE 0.9% 100 ML IV ONE (12:29)
[2020-03-07] MEDS ORDERED: MIDAZOLAM 2 MG/2 ML VIAL ONE (12:29)
[2020-03-07] MEDS ORDERED: TRANEXAMIC ACID 1,000 MG/10 ML VIAL ONE (12:29)
[2020-03-07] MEDS ORDERED: fentaNYL 100 MCG/2 ML VIAL ONE (12:29)
[2020-03-07 12:39] LABS: Bacteria,Urine Occasional /HPF (Few); Bilirubin,Urine Negative (Negative); Blood, Urine Small mg/dL (Negative); Glucose,Urine (UA) Negative (Negative); Ketones,Urine Negative (Negative); Nitrite,Urine Negative (Negative); Protein,Urine 30 MG/DL; RBC,Urine 4 /HPF (0-4); Urine Appearance CLEAR (Clear); Urine Color Yellow (Yellow); Urine Specific Gravity 1.016 (1.001-1.035); Urine Urobilinogen < 2.0 EU/DL (0.2-1.0); WBC,Urine <1 /HPF (0-6)
[2020-03-07] MEDS ORDERED: NITROGLYCERIN SL 0.4 MG TABLET SL PRN (14:05)
[2020-03-07] MEDS: KETOROLAC 15 MG/1 ML VIAL IV SCH ×2 (14:59→20:49)
[2020-03-07] MEDS: oxyCODONE/ACETAMINOPHEN 5-325 MG TABLET PO PRN ×2 (15:10→23:56)
[2020-03-07] MEDS: LACTATED RINGERS 1,000 ML IV SCH (16:44)
[2020-03-07] MEDS: ceFAZolin 2,000 MG in PREMIX 1 EACH IV SCH (18:40)
[2020-03-07] MEDS: carvediloL 3.125 MG TABLET PO SCH (20:48)
[2020-03-07] MEDS: DOCUSATE SODIUM 100 MG CAPSULE PO SCH (20:48)
[2020-03-07] MEDS: PREGABALIN 75 MG CAPSULE PO SCH (20:49)
[2020-03-07] MEDS: ATORVASTATIN 20 MG TABLET PO SCH (20:49)
[2020-03-08] MEDS: LACTATED RINGERS 1,000 ML IV SCH (01:14)
[2020-03-08] MEDS: KETOROLAC 15 MG/1 ML VIAL IV SCH ×2 (02:28→07:32)
[2020-03-08] MEDS: ceFAZolin 2,000 MG in PREMIX 1 EACH IV SCH (02:28)
[2020-03-08] MEDS: FONDAPARINUX 2.5 MG/0.5 ML SYRINGE SUBCUT SCH (05:11)
[2020-03-08 05:21] LABS: Basophils % 0.5 % (0.0-0.8); Eosinophils # 0.3 10*3/uL (0.0-0.87); Eosinophils % 5.1 % (0.00-10.9); Hematocrit 29.1 VOL% (42.0-52.0); Hemoglobin 9.3 GM/DL (14.0-18.0); Immature Granulocytes % 0.5 %; Immature Granulocytes Absolute 0.03 #; Lymphocytes # 1.5 10*3/uL (1.4-4.0); Lymphocytes % 25.2 % (21.2-54.2); Mean Corpuscular Volume 99.3 FL (87-102); Mean Platelet Volume 9.8 FL (9.6-12.0); Monocytes % 8.2 % (1.7-12.7); Neutrophils % 60.5 % (38.7-73.9); Platelet Count 136 T/CUMM (130-400); Red Blood Count 2.93 MC/CUMM (3.8-5.5); Red Cell Distribution Width 14.6 % (9.3-17.3); White Blood Count 6.1 T/CUMM (4-12)
[2020-03-08 05:38] LABS: Calcium 8.5 MG/DL (8.5-10.1); Osmolality,Calculated 285.3 MOS/KG (273-304)
[2020-03-08] MEDS: allopurinoL 300 MG TABLET PO SCH (08:46)
[2020-03-08] MEDS: carvediloL 3.125 MG TABLET PO SCH ×2 (08:46→20:32)
[2020-03-08] MEDS: DOCUSATE SODIUM 100 MG CAPSULE PO SCH ×2 (08:46→20:32)
[2020-03-08] MEDS: amLODIPine 5 MG TABLET PO SCH (08:46)
[2020-03-08] MEDS: ASPIRIN EC 81 MG TABLET PO SCH (08:46)
[2020-03-08] MEDS: tiZANidine 4 MG TABLET PO SCH (08:46)
[2020-03-08] MEDS ORDERED: FUROSEMIDE 40 MG TABLET PO SCH (09:00)
[2020-03-08] MEDS: PREGABALIN 75 MG CAPSULE PO SCH ×2 (09:55→20:32)
[2020-03-08] MEDS: oxyCODONE/ACETAMINOPHEN 5-325 MG TABLET PO PRN ×2 (14:54→20:32)
[2020-03-08] MEDS: ATORVASTATIN 20 MG TABLET PO SCH (20:32)
[2020-03-09] MEDS: LACTATED RINGERS 1,000 ML IV SCH (00:49)
[2020-03-09] MEDS: oxyCODONE/ACETAMINOPHEN 5-325 MG TABLET PO PRN ×4 (02:22→21:54)
[2020-03-09] MEDS: FONDAPARINUX 2.5 MG/0.5 ML SYRINGE SUBCUT SCH (05:28)
[2020-03-09 06:04] LABS: Basophils % 0.4 % (0.0-0.8); Eosinophils # 0.4 10*3/uL (0.0-0.87); Eosinophils % 7.4 % (0.00-10.9); Hematocrit 28.1 VOL% (42.0-52.0); Hemoglobin 8.8 GM/DL (14.0-18.0); Immature Granulocytes % 0.4 %; Immature Granulocytes Absolute 0.02 #; Lymphocytes # 1.5 10*3/uL (1.4-4.0); Lymphocytes % 26.7 % (21.2-54.2); Mean Corpuscular HGB Conc 31.3 GM/DL (32-36); Mean Corpuscular Volume 98.6 FL (87-102); Mean Platelet Volume 10.9 FL (9.6-12.0); Monocytes % 9.7 % (1.7-12.7); Neutrophils % 55.4 % (38.7-73.9); Platelet Count 126 T/CUMM (130-400); Red Blood Count 2.85 MC/CUMM (3.8-5.5); Red Cell Distribution Width 14.4 % (9.3-17.3); White Blood Count 5.7 T/CUMM (4-12)
[2020-03-09] MEDS: DOCUSATE SODIUM 100 MG CAPSULE PO SCH ×2 (08:50→21:55)
[2020-03-09] MEDS: allopurinoL 300 MG TABLET PO SCH (08:51)
[2020-03-09] MEDS: carvediloL 3.125 MG TABLET PO SCH (08:51)
[2020-03-09] MEDS: ASPIRIN EC 81 MG TABLET PO SCH (08:51)
[2020-03-09] MEDS: amLODIPine 5 MG TABLET PO SCH (08:51)
[2020-03-09] MEDS: PREGABALIN 75 MG CAPSULE PO SCH ×2 (08:51→21:55)
[2020-03-09] MEDS: tiZANidine 4 MG TABLET PO SCH (08:51)
[2020-03-09] MEDS ORDERED: carvediloL 3.125 MG TABLET PO ONE (11:00)
[2020-03-09] MEDS: ATORVASTATIN 20 MG TABLET PO SCH (21:55)
[2020-03-10 06:06] LABS: Basophils % 0.4 % (0.0-0.8); Eosinophils # 0.4 10*3/uL (0.0-0.87); Eosinophils % 7.3 % (0.00-10.9); Hemoglobin 8.6 GM/DL (14.0-18.0); Immature Granulocytes % 0.4 %; Immature Granulocytes Absolute 0.02 #; Lymphocytes # 1.7 10*3/uL (1.4-4.0); Lymphocytes % 33.9 % (21.2-54.2); Mean Corpuscular HGB Conc 31.9 GM/DL (32-36); Mean Corpuscular Volume 97.5 FL (87-102); Mean Platelet Volume 10.7 FL (9.6-12.0); Platelet Count 132 T/CUMM (130-400); Red Blood Count 2.77 MC/CUMM (3.8-5.5); Red Cell Distribution Width 14.2 % (9.3-17.3); White Blood Count 4.9 T/CUMM (4-12)
[2020-03-10] MEDS: FONDAPARINUX 2.5 MG/0.5 ML SYRINGE SUBCUT SCH (06:09)
[2020-03-10] MEDS: oxyCODONE/ACETAMINOPHEN 5-325 MG TABLET PO PRN (07:58)
[2020-03-10] MEDS ORDERED: INFLUENZA VIRUS VACCINE 0.5 ML SYRINGE IM ONE (08:44)
[2020-03-10] MEDS ORDERED: PNEUMOCOCCAL VACCINE (13 VALENT) 0.5 ML SYRINGE IM ONE (08:45)
[2020-03-10] MEDS ORDERED: carvediloL 3.125 MG TABLET PO SCH (09:00)
[2020-03-10] MEDS: PREGABALIN 75 MG CAPSULE PO SCH (09:10)
[2020-03-10] MEDS: tiZANidine 4 MG TABLET PO SCH (09:11)
[2020-03-10] MEDS: ASPIRIN EC 81 MG TABLET PO SCH (09:11)
[2020-03-10] MEDS: allopurinoL 300 MG TABLET PO SCH (09:11)
[2020-03-10] MEDS: DOCUSATE SODIUM 100 MG CAPSULE PO SCH (10:23)
[2020-03-10 11:19] VITALS: BP 97/74
== END 2020-03-10 12:49 | disposition home health service (06) | DRG 470 ==
LOC: N.OR 05:35 → N.SDSINP 05:38 → EDSTATUS 12:30 → N.3E 13:03
PROVIDERS: ADMIT Orthopaedic Surgery; ATTEND Orthopaedic Surgery